=== PATIENT | female | born 1985 | race African-American/Black ===

== ENCOUNTER 2017-03-07 15:41 | Emergency (ER) | payer OTHER ==
--- NOTE | ~2017-03-07 | CR72 ---
[facility] A Service of [facility] & [facility] RADIOLOGY TEXT RESULTS PATIENT: TWLIA RADFORD LOCATION: [facility] : 81 UNIT #: [id number] AGE: [address]: Jean-Pierre Verdugo MD SEX: F ORDER DR: [id number] [facility] [address] [place], [place] [address] [id number] E MR#: [id number] Acc #: [id number] NAME: TWILA RADFORD : 1985 SEX: F STUDY DATE/TIME: 03/07/2017 20:21 UNIT: [facility] ROOM: STUDY DESCRIPTION: CR Chest Single View Portable Attending Physician: Jean-Pierre Verdugo M.D. Ordering Physician: Jean-Pierre Verdugo M.D. Primary Care Physician: [facility] MEDICAL IMAGING REPORT This report is preliminary unless electronic signature is present EXAM Single view chest HISTORY Shortness of air and chest pain. Cough and congestion. FINDINGS Single portable AP view of the chest is compared to 11/04/2016. Heart and mediastinal contours are normal. The lungs are clear. No pleural effusion. IMPRESSION No acute cardiopulmonary findings. Dictated by... Remigio Kemp M.D. THIS IS AN ELECTRONICALLY VERIFIED REPORT Remigio Kemp M.D. at 03/08/2017 10:56 AM Tamika TD: 03/08/2017 10:24 JOB #: [id number] MEDICAL IMAGING REPORT Page 1 of 1 COPY
[~2017-03-07 15:41] MED LIST: ACETAMINOPHEN PO; ADVAIR 2501 DISK W/D PO; ADVAIR 500-501 EACH IH; ADVAIR 5001 DISK W/D PO; ALBUTEROL MININEB NEB; ALBUTEROL NEB; ALBUTEROL17 G1 IH; ALBUTEROL17 GM INH; ALBUTEROL17 GM NEB; AMOXIL875 MG PO; ATROVENT HFA12.9 G2 IH; CLARITIN10 MG PO; COMBIVENT INH14.7 GM INH; COMBIVENT MININEB INH; FLONASE16 GM; LEVAQUIN PO; MEDROL DOSEPAK4 MG DOB; MEDROL DOSEPAK4 MG PO; MEDROL4 MG/DOSE- PO; NAPROSYN500 MG PO; PREDNISONE PO; PREDNISONE10 MG/DOSE PO; SINGULAIR PO; ZITHROMAX PO; ZITHROMAX1 G/PKT PO
== END 2017-03-07 20:45 | disposition home or self-care (01) ==
LOC: CED 15:41
DX: J45.901 Unspecified asthma with (acute) exacerbation (principal); R10.9 Unspecified abdominal pain; N64.4 Mastodynia; Z91.018 Allergy to other foods
CPT/HCPCS: 71010; 94640; 99284

== ENCOUNTER 2017-05-08 18:16 | Emergency (ER) | payer OTHER ==
[~2017-05-08] VITALS: Ht 170.2 cm; Wt 129.7 kg
--- NOTE | ~2017-05-08 | CR72 ---
[facility] A Service of [facility] & [facility] RADIOLOGY TEXT RESULTS PATIENT: TWILA RADFORD LOCATION: [facility] : 81 UNIT #: [id number] AGE: [address]: Troy Adrian MD SEX: F ORDER DR: [id number] [facility] [address] [place], [place] [address] [id number] E MR#: [id number] Acc #: [id number] NAME: TWILA RADFORD : 1985 SEX: F STUDY DATE/TIME: 05/08/2017 19:53 UNIT: [facility] ROOM: STUDY DESCRIPTION: CR Chest Single View Portable Attending Physician: Troy Adrian M.D. Ordering Physician: Troy Adrian M.D. Primary Care Physician: [facility] MEDICAL IMAGING REPORT This report is preliminary unless electronic signature is present EXAM Single view chest dated 05/08/2017 COMPARISON Single view chest dated 03/07/2017. HISTORY Shortness of air today. FINDINGS A single AP portable view of the chest shows both lungs to be clear. The heart is normal in size. The mediastinal contour is normal. No significant bone abnormalities are seen. IMPRESSION Normal portable chest. Dictated by... Marie Emery M.D. THIS IS AN ELECTRONICALLY VERIFIED REPORT Marie Emery M.D. at 05/11/2017 9:16 AM CPR/mjs TD: 05/09/2017 10:11 JOB #: [id number] MEDICAL IMAGING REPORT Page 1 of 1 COPY
== END 2017-05-08 22:35 | disposition home or self-care (01) ==
LOC: CED 18:16
DX: J45.909 Unspecified asthma, uncomplicated (principal); Z91.018 Allergy to other foods
CPT/HCPCS: 71010; 94640; 99285